=== PATIENT | male | born 1965 | race Caucasian/White ===

== ENCOUNTER 2020-11-15 16:43 | Inpatient (IN) | payer OTHER ==
[~2020-11-15] VITALS: Ht 177.8 cm; Wt 70.7 kg
[2020-11-15 16:44] VITALS: BP 182/93
[2020-11-15 17:33] LABS: ABSOLUTE NEUTROPHILS 5.8 thou/uL (1.4-8.2); BASOPHILS 0.9 % (0.0-2.0); EOSINOPHILS 3.9 % (0.0-3.0); HEMATOCRIT 43.9 % (42.0-52.0); HEMOGLOBIN 15.2 gm/dL (14.0-18.0); LYMPHOCYTES 17.5 % (24.0-44.0); MCH 33.2 pg (26.0-34.0); MCHC 34.5 g/dL (28.0-37.0); MCV 96.2 fL (80.0-100.0); MONOCYTES 11.2 % (1.0-8.0); PLATELET COUNT 242 thou/uL (150-400); POLYS 66.5 % (36.0-66.0); RBC 4.57 mil/uL (4.50-6.00); RDW 13.8 % (10.5-14.5); WBC 8.8 thou/uL (4.0-11.0)
[2020-11-15 17:41] LABS: ANION GAP 9 mmol/L (7-16); BUN 32 mg/dL (7-18); CALCIUM 8.5 mg/dL (8.5-10.1); CHLORIDE 107 mmol/L (98-107); CO2 27 mmol/L (21-32); CREATININE 1.3 mg/dL (0.7-1.3); GLUCOSE 91 mg/dL (74-106); POTASSIUM 4.2 mmol/L (3.5-5.1); SODIUM 143 mmol/L (136-145)
[2020-11-15 17:52] LABS: ALBUMIN 3.4 g/dL (3.4-5.0); SGOT 25 U/L (15-37); SGPT 35 U/L (16-63); TOTAL BILIRUBIN 0.3 mg/dL (0.2-1.0); TOTAL PROTEIN 8.4 g/dL (6.4-8.2); TROPONIN-I <0.06 ng/mL (<0.06)
[2020-11-15] MEDS ORDERED: DEPAKOTE 250MG250 MG PO (18:41)
[2020-11-15] MEDS ORDERED: BUSPIRONE HCL10 MG PO (18:41)
[2020-11-15] MEDS ORDERED: ASA81BEC PO (18:41)
[2020-11-15] MEDS ORDERED: LIPITOR 20 MG T20 M1 PO (18:41)
[2020-11-15] MEDS ORDERED: TOPROL XL50 MG PO (18:42)
[2020-11-15] MEDS ORDERED: REMERON15 M2 PO (18:42)
[2020-11-15] MEDS ORDERED: VENTOLIN HFA 1818 GM INH (18:42)
[2020-11-15] MEDS ORDERED: SERTRALINE HCL100 MG PO (18:43)
[2020-11-15] MEDS ORDERED: SPIRONOLACTONE25 MG PO (18:43)
[2020-11-15] MEDS ORDERED: GEODON20 MG PO (18:43)
[2020-11-15 19:46] LABS: URINE BILIRUBIN NEGATIVE (Negative); URINE BLOOD TRACE (Negative); URINE CLARITY CLEAR; URINE COLOR YELLOW; URINE GLUCOSE-RANDOM* NEGATIVE (Negative); URINE KETONES NEGATIVE (Negative); URINE LEUKOCYTES-REFLEX 1+ (Negative); URINE NITRITE-REFLEX NEGATIVE (Negative); URINE PROTEIN (DIPSTICK) NEGATIVE (Negative); URINE SPECIFIC GRAVITY 1.025 (1.005-1.035)
[2020-11-15 19:56] LABS: MUCUS 4-6 Moderate strn/LPF (None Seen)
[2020-11-15 19:57] LABS: HYALINE CASTS 0-3 Few /LPF (None Seen); SQUAMOUS 0-3 Few /LPF (0-3); URINE WBC-REFLEX >25 Many /HPF (0-5)
[2020-11-15 19:58] LABS: URINE RBC 0-2 Rare /HPF (0-2)
[2020-11-15 20:03] LABS: CRYSTALS None Seen /LPF (None Seen); YEAST-REFLEX Present (None Seen)
[2020-11-15 21:08] VITALS: BP 155/85
--- NOTE | 2020-11-15 21:55 | NUR ---
IN PREPARATION FOR TRANSPORT, PT CLIMBED OUT OF BED AND WAS FOUND STANDING IN THE DOORWAY OF ROOM. PT REORIENTED TO HAVE A SEAT IN THE BED DUE TO THE PT BEING A SEVERE FALL RISK. PT IS NOT ALERT AND ORIENTED TIMES 4.
[2020-11-15 22:39] VITALS: BP 172/102
[2020-11-16 04:15] VITALS: BP 125/68
--- NOTE | 2020-11-16 05:30 | NUR ---
ASSUME CARE 2245. PT STABLE. BP RUNS HIGH SOMETIME. A/O X 4 AND ASNSWERS QUESTIONS APPROPRIATELY. FORGETFUL AT TIMES. DENIES ANY PAIN. MODERATE TOLERANCE TO ACTIVITY. ASSESSMENT CHARTED. PROGRESSING WELL TOWARDS POC. NO DISTRESS NOTED. 5 MITCHELL NOTED IN THE BACK OF HEAD WHERE LACERATION IS. SCANT BLOOD DRAINAGE NOTED FROM SITE. PT DENIES ANY HEADACHES. PLAN IS TO CONTINUE TO MONITOR LOC. WILL BENEFIT FROM PT/OT. WILL CONTINUE TO MONITOR AND FOLLOW WITH POC
[2020-11-16 09:06] VITALS: BP 150/98
--- NOTE | 2020-11-16 09:30 | 2DMMODE ---
[facility] [place] [address] 2 D/M-MODE ECHOCARDIOGRAM Name: DEVIN CORONADO Room #: 204-P ADM IN M.R.#: [id number] Admission: 11/15/20 Attend Phys: Penny Robins MD Discharge: Date of : 65 Report #: [id number] THIS REPORT FOR: cc: Ulises Rai MD, Dennis R MD Park,David Baptiste MD ~ APPROVED REPORT Study performed: 11/16/2020 08:33:41 EXAM: Comprehensive 2D, Doppler, and color-flow Echocardiogram Patient Location: Bedside Room #: 204 Status: routine BSA: 1.87 HR: 57 bpm BP: 125/68 mmHg Rhythm: NSR Other Information Study Quality: Adequate Indications Dizzy/fall, EKG changes. Hx: CAD, cardiomyopathy, CVA, HTN, HLP, tobacco abuse. 2D Dimensions RVDd: 33.96 mm IVSd: 13.53 (7-11mm) LVOT Diam: 22.40 (18-24mm) LVDd: 52.82 mm PWd: 8.90 (7-11mm) LVDs: 45.31 (25-40mm) Aortic Root: 33.20 mm Volumes Left Atrial Volume (Systole) Single Plane 4CH: 36.29 mL Single Plane 2CH: 54.81 mL LA ESV Index: 26.00 mL/m2 Aortic Valve AoV Peak Rohith.: 1.21 m/s AO Peak Gr.: 5.90 mmHg LVOT Max P.76 mmHg LVOT Max V: 0.97 m/s MICHAEL Vmax: 3.14 cm2 [facility] [address] [place] [address] 2 D/M-MODE ECHOCARDIOGRAM Name: CLIFFDEVIN Room #: 204-P [facility] IN [facility].#: [id number] Admission: 11/15/20 Attend Phys: Salomon Ashley Discharge: Date of : 65 Report #: [id number] Mitral Valve E/A Ratio: 0.6 MV Decel. Time: 287.98 ms MV E Max Rohith.: 0.41 m/s MV A Rohith.: 0.64 m/s MV PHT: 83.51 ms IVRT: 107.27 ms Pulmonary Valve PV Peak Rohith.: 1.66 m/s PV Peak Gr.: 11.07 mmHg Pulmonary Vein P Vein S: 0.53 m/s P Vein A: 0.26 m/s P Vein D: 0.33 m/s P Vein A Dur.: 93.4 msec P Vein S/D Ratio: 1.61 Tricuspid Valve RAP Estimate: 5.00 mmHg Left Ventricle The left ventricle is normal size. Regional wall motion abnormalities are noted. There is hypokinesis of the inferolateral wall. Mild septal hypertrophy is present. Left ventricular systolic function is moderately decreased. LVEF is 40%. Mild diastolic dysfunction is present (impaired relaxation pattern). Right Ventricle The right ventricle is normal size. The right ventricular systolic function is normal. Atria The left atrium size is normal. The right atrium size is normal. Aortic Valve The aortic valve is normal in structure. No aortic regurgitation is present. There is no aortic valvular stenosis. Mitral Valve The mitral valve is normal in structure. There is no mitral valve regurgitation noted. No evidence of mitral valve stenosis. Tricuspid Valve The tricuspid valve is normal in structure. There is no tricuspid valve regurgitation noted. Unable to assess PA pressure. [facility] [address] [place] [address] 2 D/M-MODE ECHOCARDIOGRAM Name: DEVIN CORONADO Room #: 204-P ADM IN M.R.#: [id number] Admission: 11/15/20 Attend Phys: Salomon Ashley Discharge: Date of : 65 Report #: [id number] Pulmonic Valve The pulmonary valve is normal in structure. There is no pulmonic valvular regurgitation. Great Vessels The aortic root is normal in size. Ascending aorta is not well visualized. IVC is normal in size and collapses >50% with inspiration. Pericardium There is no pericardial effusion. <Conclusion> The left ventricle is normal size. Left ventricular systolic function is moderately decreased. Regional wall motion abnormalities are noted. Mild diastolic dysfunction is present (impaired relaxation pattern). The right ventricle is normal size. The left atrium size is normal. The aortic valve is normal in structure. There is no mitral valve regurgitation noted. <ELECTRONICALLY SIGNED> By: David Goode MD 11/16/20928 8 8 David Goode MD /INF
--- NOTE | 2020-11-16 09:39 | EKG ---
[place] [address] [facility] [place] [address] ELECTROCARDIOGRAM REPORT Name: DEVIN CORONADO Room #: 204-P ADM IN M.R.#: [id number] Admission: 11/15/20 Attend Phys: Penny Robins MD Discharge: Date of : 65 Report #: [id number] [facility] ED Test Date: 2020-11-15 Test Time: 16:59:30 Pat Name: DEVIN CORONADO Department: Room: 204 Gender: M Junior Accountant Bookkeeper: vega : 1965 Requested By: Cherie Aguilar Order Number: [id number] MD: Slim Blount Measurements Intervals [place] Rate: 57 P: 39 WA: 139 QRS: 65 QRSD: 126 T: 138 QT: 438 QTc: 427 Interpretive Statements Sinus rhythm Probable inferior infarct, old LVH with repolarization abnormality and QRS widening No previous ECG available for comparison Electronically Signed On 11-16-2020 9:39:41 CDT by Slim Blount [email or web address] <ELECTRONICALLY SIGNED> By: Slim Blount MD, [facility] 11/16/20 0939 1659 1659 Slim Blount MD, FACC /EPI
[2020-11-16 10:46] LABS: CHOLESTEROL 124 mg/dL (<200); HDL CHOLESTEROL 41 mg/dL (>40); LDL CHOLESTEROL 60 mg/dL (<100); TRIGLYCERIDE 119 mg/dL (<150); VLDL 24 mg/dL (<40)
--- NOTE | 2020-11-16 11:39 | NUR ---
assessment: CM REVIEWED CHART. PT WAS ADMITTED FROM [facility] AFTER A FALL FROM SYNCOPAL EPISODE THAT RESULTED IN 8 MITCHELL. PER CHART PT HAS HX OF TBI AND CVA. PT HAS A LEGAL GUARDIAN/PUBLIC STORAGE WORKER KENYA GIL [phone]. CM CONTACTED PA OFFICE AND THEY WERE UNAWARE OF HIS ADMISSION. CM NOTIFIED ALEX NUNES IN CASE MANAGEMENT AND SHE REQUEST WE KEEP THEM UPDATED. GREY SPOKE WITH BREN IN ADMISSIONS AT [facility] AND ALSO SENT THEM UPDATED CLINICAL ON PATIENT. PLANS ARE FOR PATIENT TO RETURN TO FACILITY ONCE MEDICALLY STABLE TO DO SO. PT WILL NEED A NEGATIVE COVID TEST PRIOR TO GOING BACK TO FACILITY. BREN REQUEST THAT CAROL THE TRANSFER CAR OPERATOR DRIER BE CONTACTED ONCE PT IS MEDICALLY STABLE TO RETURN TO FACILITY. CM WILL CONTINUE TO FOLLOW TO ASSIST NEEDED.
[2020-11-16 12:10] VITALS: BP 141/90
[2020-11-16 15:52] VITALS: BP 126/75
--- NOTE | 2020-11-16 16:52 | NUR ---
ASSUMED CARE SHIFT CHANGE. ASSESSMENTS CHARTED.MEDS GIVEN PER MAR. VSS. A&OX2, ROOM AIR. DENIES PAIN. LACERATION BACK OF HEAD WITH MITCHELL, SLAT PICKLER-REFER TO WOUND ORDERS. PART OF STRESS TEST DONE TODAY, SECOND PART TOMORROW. PT INCONTINENT OF BLADDER. PT UP X1 TOLERATING FAIR. PT CURRENTLY RESTING IN BED IN NAP, CONTINUING POC. WILL PASS ON TO NOC RN.
[2020-11-16 20:38] VITALS: BP 146/84
[2020-11-17 04:54] VITALS: BP 143/93
--- NOTE | 2020-11-17 05:16 | NUR ---
ASSUMED PT CARE AT CHANGE OF SHIFT, PT IS AWAKE, ALERT AND ORIENTED TO SELF AND PLACE, DENIES PAIN, ASSESSMENTS CHARTED, SB ON TELE, REMAINS INCONTINENT, EDUCATED ABOUT FALL PREVENTION, REMAINED NPO AFTER NIDNIGHT FOR STRESS TEST TODAY, NO NEEDS AT THIS TIME, WILL CONTINUE TO MONITOR AND FOLLOW POC
[2020-11-17 08:05] VITALS: BP 136/106
--- NOTE | 2020-11-17 10:28 | HC ---
[facility] [address] CONSULTATION Name: DEVIN CORONADO Room #: 204-P ADM IN M.R.#: [id number] Admission: 11/15/20 Attend Phys: Leonid Parson MD Discharge: Date of : 65 Report #: [id number] THIS REPORT FOR: cc: Ulises Rai MD, Dennis R MD Althoff,Juan Mathis MD ~ DATE OF SERVICE: 11/16/2020 CHIEF COMPLAINT: Scalp laceration. HISTORY OF PRESENT ILLNESS: This is a 55-year-old male patient who was admitted through the Emergency Department with near syncope and head injury. He apparently fell striking the back of his head which was preceded by dizziness. He sustained a laceration to the scalp that was repaired with arlin in the Emergency Department. I have been asked to follow him regarding the wound while hospitalized. The patient is slow to answer questions. Denies significant pain at this time. PAST MEDICAL HISTORY: Positive for hypertension. He has a history of poor cognitive function following intracerebral hemorrhage in the past. He has a history of cardiomyopathy, coronary artery disease. SOCIAL HISTORY: The patient has a history of smoking cigarettes, less than a pack per day. Denies alcohol use, currently living in the prison. FAMILY HISTORY: Noncontributory. CURRENT MEDICATIONS: Include mirtazapine, aspirin, atorvastatin, buspirone, divalproex, fluconazole, metoprolol, sertraline, spironolactone. He did receive tetanus and diphtheria toxoid booster in the Emergency Department. ALLERGIES: No known drug allergies. REVIEW OF SYSTEMS: Somewhat limited and mostly covered in the history of present illness. EYES: The patient denies any visual changes. ENT: The patient denies earache, nasal drainage, sore throat. CARDIOVASCULAR: The patient denies chest pain or palpitations. PULMONARY: The patient denies cough or shortness of breath. GASTROINTESTINAL: The patient denies nausea, vomiting, diarrhea or abdominal pain. ORTHOPEDIC: The patient denies pain or swelling of the extremities. Other systems are either unobtainable or are negative. PHYSICAL EXAMINATION: [address] [address] CONSULTATION Name: DEVIN CORONADO Room #: 204-P [facility] IN M.R.#: [id number] Admission: 11/15/20 Attend Phys: Leonid Parson MD Discharge: Date of : 65 Report #: [id number] VITAL SIGNS: Include temperature 36.4, pulse 51, respiratory rate 18, blood pressure 126/75. GENERAL: This is a somewhat chronically ill-appearing male patient who appears to be in minimal distress. HEENT: Examination of the head demonstrates a linear laceration to the occipital region of the scalp. It is somewhat loosely reapproximated using surgical arlin. There is no evidence of infection, drainage, no ongoing bleeding. The head is otherwise atraumatic. No step-off to palpation and no significant tenderness. Nose and throat are clear. NECK: Supple. LUNGS: Clear. HEART: Regular without obvious murmur. ABDOMEN: Soft. EXTREMITIES: Without clubbing or cyanosis. NEUROLOGIC: The patient is alert. He is slow to answer questions. He appears to move very slowly. LABORATORY DATA: Sodium 143, potassium 4.2, chloride 107, CO2 of 27, BUN 32, creatinine 1.3, glucose 91. Albumin is 3.4. White blood cell count 8.8 with a hemoglobin of 15.2. CLINICAL IMPRESSION: 1. Laceration to the scalp following fall, status post repair in the Emergency Department. 2. EKG changes and history of cardiomyopathy and coronary artery disease. 3. History of anxiety. 4. History of hemorrhagic cerebrovascular accident with cognitive deficit. RECOMMENDATIONS: At this point in time, we recommend that the scalp laceration simply be left open to air. We will observe for signs of infection. The arlin probably should be removed at approximately 10-14 days following the initial repair. I appreciate being asked to see him in consultation. <ELECTRONICALLY SIGNED> By: Juan Bui MD 11/17/20 1028 0930 1002 Juan Bui MD /nt
--- NOTE | 2020-11-17 14:07 | NUR ---
ON-GOING ASSESSMENT: CM REVIEWED CHART AND FAXED UPDATED CLINICAL TO [facility]. PTS SECOND DAY STRESS TEST IS PENDING. CM WILL CONTINUE TO FOLLOW TO ASSIST NEEDED. CM NOTIFIED BEDSIDE RN PT WILL LIKELY NEED NEGATIVE COVID TEST RESULT PRIOR TO RETURNING TO FACILITY. CM WILL CONTINUE TO FOLLOW TO ASSIST NEEDED. PTS PUBLIC PROPERTY TECHNICIAN MUST BE NOTIFIED AT TIME OF DISCHARGE. CM WILL CONTINUE TO FOLLOW.
[2020-11-17 14:23] VITALS: BP 148/93
--- NOTE | 2020-11-17 16:39 | NUR ---
patient had stress test today. plans for patient discharge tomorrow. ra. eating well.
[2020-11-17 20:30] VITALS: BP 147/84
[2020-11-18 05:00] VITALS: BP 178/84
--- NOTE | 2020-11-18 05:00 | NUR ---
ASSUMED PT CARE AT CHANGE OF SHIFT, PT IS AWAKE, ALERT AND ORIENTEDX2, DENIES PAIN OR SOB, MEDS GIVEN PER MAR, ASSESSMENTS CHARTED, REMAINS INCONTINENT, MITCHELL TO THE BACK OF THE HEAD INTACT, NO S/S OF INFECTION, SB ON THE MONITOR, HR LOW 47, NO NEEDS AT THIS TIME, WILL CONTINUE TO MONITOR, PLAN FOR DISCHARGE TODAY
[2020-11-18 08:10] VITALS: BP 133/77
[2020-11-18] MEDS ORDERED: CARVEDILOL3.125 MG PO (11:54)
[2020-11-18] MEDS ORDERED: LISINOPRIL10 MG PO (11:55)
[2020-11-18] MEDS ORDERED: BACTRIM DS TAB1 EAC1 PO (11:56)
[2020-11-18 12:10] VITALS: BP 151/75
--- NOTE | 2020-11-18 13:26 | NUR ---
PT IS AXOX2, KNOWS SELF AND PLACE, BUT NOT TRULY AWARE OF SITUATION AND TIME; PT EXHIBITS CONFUSION. PT IS FROM [facility]. DR WALDEN CONSULTED, DR HEADLEY CONSULTED. PT HEAD WOUND APPEARS APPROXIMATED WITH MITCHELL. POC IS TO DISCHARGE BACK TO SNF VIA STRETCHER VAN. PT VSS, AFEBRILE, SB TO SR ON MONITOR. FALL PRECAUTIONS IN PLACE. NO CONCERNS AT THIS TIME.
[2020-11-18 14:35] VITALS: BP 151/75
--- NOTE | 2020-11-18 16:27 | NUR ---
PT DISCHARGING TODAY BACK TO [facility] FAXED DC ORDERS/SUMMARY TO FACILITY SPOKE WITH CAROL (DON) HE RECEIVED ORDERS. THEY DO NOT HAVE ACCESS TO TRANSPORTATION SO TRANSPORT ARRANGED WITH [facility] FOR 3:30 ONLINE. RECEIVED A CALL FROM AZUL AT [facility] SHE SAID THEY COULD NOT CHAMBER MAGISTRATE PT TIL [phone] THIS EVENING. RECEIVED PERMISSION TO CALL SECURE TO ARRANGE TRANSPORT AND THEY COULD NOT CHAMBER MAGISTRATE PT TIL [phone]. NOTIFIED FACILITY SPOKE WITH CAROL AND HE SAID HE COULD NOT ACCEPT PT BACK AT THAT TIME TOO LATE ASKED WHAT IS THE CUTOFF TIME FOR A PT TO COME BACK HE SAID 1500. SO I REACHED OUT TO SOPHIE ([facility] STAFF MIDWIFE/APPRENTICESHIP DIRECTOR) SHE WAS ABLE TO HAVE A PROFESSIONAL BASS FISHERMAN HERE IN 30 MIN. WHICH WOULD BE 1450. NOTIFIED CAROL AT [facility] HE IS [place] TO ACCEPT PT AT THAT TIME.
== END 2020-11-18 16:42 | DRG 605 ==
LOC: ER 16:43 → 2N 19:49 → EROBS 19:49 → 2N 21:48
PROVIDERS: Hospitalist; Nurse Practitioner Family; ADMIT Internal Medicine; ATTEND Internal Medicine
PROC: 0HQ0XZZ Repair Scalp Skin, External Approach (ICD-10-PCS; principal; 2020-11-15)
DX: S01.01XA Laceration without foreign body of scalp, initial encounter (principal); I42.9 Cardiomyopathy, unspecified; N39.0 Urinary tract infection, site not specified; B37.89 Other sites of candidiasis; S09.90XA Unspecified injury of head, initial encounter; I10 Essential (primary) hypertension; I25.10 Atherosclerotic heart disease of native coronary artery without angina pectoris; F41.9 Anxiety disorder, unspecified; B96.1 Klebsiella pneumoniae [K. pneumoniae] as the cause of diseases classified elsewhere; F32.9 Major depressive disorder, single episode, unspecified; E78.5 Hyperlipidemia, unspecified; I69.319 Unspecified symptoms and signs involving cognitive functions following cerebral infarction; Z79.82 Long term (current) use of aspirin; Z79.899 Other long term (current) drug therapy; W18.39XA Other fall on same level, initial encounter; Y93.89 Activity, other specified; Y92.89 Other specified places as the place of occurrence of the external cause; Y99.8 Other external cause status; Z87.820 Personal history of traumatic brain injury; Z71.6 Tobacco abuse counseling; Z23 Encounter for immunization
CPT/HCPCS: 10081